=== PATIENT | male | born 1990 | race Caucasian/White ===

== ENCOUNTER 2023-03-18 14:38 | Emergency (ER) | payer OTHER ==
[~2023-03-18] VITALS: Ht 177.8 cm; Wt 79.8 kg
[2023-03-18 14:44] VITALS: BP_SYST 145; PULSE 68; RESP 18; TEMP 98.3; O2SAT 98
[2023-03-18] MEDS ORDERED: KETOROLAC TROMETHAMINE 60 MG/2 ML VIAL IM ONE (15:00)
[2023-03-18 16:04] VITALS: BP_SYST 118; PULSE 70; RESP 18; TEMP 98; O2SAT 96
[2023-03-18 16:14] LABS: BILIRUBIN,URINE NEGATIVE (NEGATIVE); BLOOD, URINE NEGATIVE (NEGATIVE); CLARITY/URINE CLEAR (CLEAR); COLOR,URINE YELLOW (YELLOW); GLUCOSE,URINE NEGATIVE (NEGATIVE); KETONES,URINE NEGATIVE (NEGATIVE); LEUKOCYTE ESTERASE ,URINE NEGATIVE (NEGATIVE); NITRITE, URINE NEGATIVE (NEGATIVE); PROTEIN URINE NEGATIVE (NEGATIVE); UROBILINOGEN,URINE 0.2 (0.2-1.0)
[2023-03-18] MEDS ORDERED: DICL75TA5 PO (16:37)
[2023-03-18] MEDS ORDERED: DICL20GE TP (16:37)
== END 2023-03-18 16:47 | disposition home or self-care (01) ==
LOC: SED 14:38
DX: S39.012A Strain of muscle, fascia and tendon of lower back, initial encounter (principal); M54.30 Sciatica, unspecified side; Z79.899 Other long term (current) drug therapy; W22.8XXA Striking against or struck by other objects, initial encounter; Y93.89 Activity, other specified; Y92.89 Other specified places as the place of occurrence of the external cause; Y99.8 Other external cause status
CPT/HCPCS: 99283; 81001; 96372; 81003; J1885